=== PATIENT | female | born 1985 | race Caucasian/White ===

== ENCOUNTER 2016-08-18 11:52 | Emergency (ER) | payer MEDICAID ==
[~2016-08-18] VITALS: Ht 170.2 cm; Wt 73.0 kg
--- NOTE | 2016-08-18 12:53 | Emergency Room Report ---
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 N Clinical Suspician of Infection? N Mental Status: 1 - Regular (Normal Baseline) Sepsis Risk:Possible Sepsis Risk Have you (or family members/close friends) recently traveled outside the [place]? N If Yes, where/when: Have you had exposure to infectious disease within the past month? N TB? Other? Specify: Acute left sided chest pain today, hx pleurisy (Candy Burt MD) History Medical History General Angina: No HI: No Hypertension? No Hyperlipidemia? No CHF? No COPD? No Asthma? No CVA? No Seizures? No Diabetes? No GB Disease: No Hepatitis? Yes MRSA? No TB? No Cancer? 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 Respiratory denies no symptoms reported Cardiovascular denies no symptoms reported Gastrointestinal denies no symptoms reported Genitourinary denies: no symptoms reported. Musculoskeletal denies other (pain in left rib area ) (JAIR NICOLAS APRN) All Other Systems Reviewed and Negative Respiratory denies no symptoms reported (Candy Burt MD) Physical Exam General Appearance normal appearance Eye Exam - bilateral eye normal exam, bilateral eye PERRL Ear, Nose, Throat normal ENT inspection Neck normal inspection, non-tender Respiratory Status Yes: trachea midline, chest symmetrical. No: respiratory distress. Lung Sounds bilateral: normal breath sounds, lungs clear. Cardiovascular normal exam, regular rate/rhythm, no peripheral edema, no gallop, no JVD, no murmur, no rub, normal peripheral pulses Gastrointestinal normal bowel sounds, normal exam, non tender Back normal inspection (pain in the left rib area) Extremities non-tender, normal range of motion, normal inspection (JAIR NICOLAS APRN) Vital Signs Vital Signs Date Time Temp Pulse Resp B/P Pulse O2 O2 Flow FiO2 Ox Delivery Rate 08/18 1353 98.2 76 20 111/69 98 08/18 1313 20 08/18 1158 98.2 93 20 125/78 98 Patient states that she was driving down the highway and felt a "catch" in her left rib area denies injury, cough, fever, or feeling ill. States that pain is worse when she moves and feels better when she lays down and rests. States that she is a frequent smoker for last 3 years. States that pain feels like a muscle spasm in the area (JAIR NICOLAS APRN) Neurologic alert, normal exam Skin intact (Javed JOSÉ, Candy Longoria) Medical Decision Making LABS/Meds/Orders Pt receiving controlled substance in ED? No (on Suboxone) Jose was queried for this patient? No Results/Orders Current Medication Orders Sig/Louie Start time Last Medication Dose Route Stop Time Status Admin Ketorolac 0 .STK-MED ONE 08/18 1311 DC Tromethamine .ROUTE Ketorolac 60 MG ONCE ONE 08/18 1300 DC 08/18 Tromethamine IM 08/18 1301 1313 Orders Procedure Date/time Status CHEST(2 VIEWS-NOT PORTABLE) 08/18 1210 Active XRAY/CT/US XRAY/CT/US XRAY chest XR interpretation by reviewed by me, discussed w/radiologist (neg PTX) (Javed JOSÉ, Candy Longoria) Departure Departure Condition STABLE Referrals Ruby KUMAR,Yvette Leary (Family) Prescriptions Current Visit Scripts NAPROXEN (NAPROXEN 500MG TAB) 500 MG PO BIDP PRN pleurisy #20 TAB ED Critical Care Critical Care No (JAIR NICOLAS APRN) Departure Time of Disposition 1334 Disposition DC Home or Self Care(routine) Clinical Impression Primary Impression: PLEURISY Patient Instructions Pleurisy Additional Instructions Naproxen is not a narcotic. Take it or over the counter Ibuprofen, follow up with your family doctor in one to four days. Try moist heat. Discharge Counseling Counseled pt/family regarding diagnosis, test results, medications/RX, home care, follow up needs ED Critical Care Critical Care No (Candy Burt MD) at [phone] at [phone]
--- NOTE | 2016-08-18 12:53 | Emergency Room Report ---
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 N Clinical Suspician of Infection? N Mental Status: 1 - Regular (Normal Baseline) Sepsis Risk:Possible Sepsis Risk Have you (or family members/close friends) recently traveled outside the [place]? N If Yes, where/when: Have you had exposure to infectious disease within the past month? N TB? Other? Specify: Acute left sided chest pain today, hx pleurisy (Candy Burt MD) History Medical History General Angina: No NC: No Hypertension? No Hyperlipidemia? No CHF? No COPD? No Asthma? No CVA? No Seizures? No Diabetes? No GB Disease: No Hepatitis? Yes MRSA? No TB? No Cancer? 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 Respiratory denies no symptoms reported Cardiovascular denies no symptoms reported Gastrointestinal denies no symptoms reported Genitourinary denies: no symptoms reported. Musculoskeletal denies other (pain in left rib area ) (JAIR NICOLAS APRN) All Other Systems Reviewed and Negative Respiratory denies no symptoms reported (Candy Burt MD) Physical Exam General Appearance normal appearance Eye Exam - bilateral eye normal exam, bilateral eye PERRL Ear, Nose, Throat normal ENT inspection Neck normal inspection, non-tender Respiratory Status Yes: trachea midline, chest symmetrical. No: respiratory distress. Lung Sounds bilateral: normal breath sounds, lungs clear. Cardiovascular normal exam, regular rate/rhythm, no peripheral edema, no gallop, no JVD, no murmur, no rub, normal peripheral pulses Gastrointestinal normal bowel sounds, normal exam, non tender Back normal inspection (pain in the left rib area) Extremities non-tender, normal range of motion, normal inspection (JAIR NICOLAS APRN) Vital Signs Vital Signs Date Time Temp Pulse Resp B/P Pulse O2 O2 Flow FiO2 Ox Delivery Rate 08/18 1353 98.2 76 20 111/69 98 08/18 1313 20 08/18 1158 98.2 93 20 125/78 98 Patient states that she was driving down the highway and felt a "catch" in her left rib area denies injury, cough, fever, or feeling ill. States that pain is worse when she moves and feels better when she lays down and rests. States that she is a frequent smoker for last 3 years. States that pain feels like a muscle spasm in the area (JAIR NICOLAS APRN) Neurologic alert, normal exam Skin intact (Javed JOSÉ, Candy Longoria) Medical Decision Making LABS/Meds/Orders Pt receiving controlled substance in ED? No (on Suboxone) Jose was queried for this patient? No Results/Orders Current Medication Orders Sig/Louie Start time Last Medication Dose Route Stop Time Status Admin Ketorolac 0 .STK-MED ONE 08/18 1311 DC Tromethamine .ROUTE Ketorolac 60 MG ONCE ONE 08/18 1300 DC 08/18 Tromethamine IM 08/18 1301 1313 Orders Procedure Date/time Status CHEST(2 VIEWS-NOT PORTABLE) 08/18 1210 Active XRAY/CT/US XRAY/CT/US XRAY chest XR interpretation by reviewed by me, discussed w/radiologist (neg PTX) (Javed JOSÉ, Candy Longoria) Departure Departure Condition STABLE Referrals Ruby KUMAR,Yvette Leary (Family) Prescriptions Current Visit Scripts NAPROXEN (NAPROXEN 500MG TAB) 500 MG PO BIDP PRN pleurisy #20 TAB ED Critical Care Critical Care No (JAIR NICOLAS APRN) Departure Time of Disposition 1334 Disposition DC Home or Self Care(routine) Clinical Impression Primary Impression: PLEURISY Patient Instructions Pleurisy Additional Instructions Naproxen is not a narcotic. Take it or over the counter Ibuprofen, follow up with your family doctor in one to four days. Try moist heat. Discharge Counseling Counseled pt/family regarding diagnosis, test results, medications/RX, home care, follow up needs ED Critical Care Critical Care No (Candy Burt MD) at [phone] at [phone]
[2016-08-18] MEDS ORDERED: NAPROXEN SODIU500 MG PO (13:36)
--- NOTE | 2016-08-18 13:44 | RADIOLOGY REPORT PS360 ---
CHEST(2 VIEWS-NOT PORTABLE) HISTORY: Pleuritic chest pain on the left L RIB PAIN ORDERING PHYSICIAN: JAIR NICOLAS APRN PATIENT AGE: 31 years COMPARISON: None available FINDINGS: The cardiomediastinal silhouette and pulmonary vascularity are within normal limits. The lungs are clear without infiltrates, suspicious nodules, or pleural effusions. No acute bony abnormalities. IMPRESSION: Negative chest, no acute finding
[2016-08-18 13:53] VITALS: BP 111/69
[2016-09-19] MEDS ORDERED: STOOL SOFTENER250 M1 PO (22:48)
[2016-09-19] MEDS ORDERED: MAGNESIUM CITRA1 BOT PO (22:49)
[2016-09-19] MEDS ORDERED: GABAPENTIN 600600 MG PO (22:50)
[2016-09-19] MEDS ORDERED: SUBOXONE 8 MG-21 FIL SL (22:50)
[2016-09-20] MEDS ORDERED: GOLYTELY 40004000 ML PO (01:01)
== END 2016-08-18 13:54 | disposition home or self-care (01) ==
LOC: ER 11:52
DX: R09.1 Pleurisy (principal); Z72.0 Tobacco use

== ENCOUNTER → 2017-06-07 | Outpatient (CLI) | payer MEDICAID ==
[~2017-06-07] MED LIST: GABAPENTIN 600600 MG PO; GOLYTELY 40004000 ML PO; MAGNESIUM CITRA1 BOT PO; NAPROXEN SODIU500 MG PO; STOOL SOFTENER250 M1 PO; SUBOXONE 8 MG-21 FIL SL
--- NOTE | 2017-06-08 15:33 | RADIOLOGY REPORT PS360 ---
PROCEDURE: 2-D M-mode and color Doppler study INDICATIONS FOR THE TEST: Chest pain COPD Heart Murmur Tobacco Smoking PalpitationsX Fatigue Syncope Edema Hypertension Diabetes Mellitus Rheumatic Fever SOB MANCILLA Obesity Hyperlipidemia Family History HD Additional History ABN EKG H/O DRUG ABUSE PATIENT INFORMATION HEIGHT: 67 WEIGHT:192 GENDER: Female B/P:110/70 2-D/M-MODE INTERPRETATION: 2-D MEASUREMENTS OBSERVED VALUES IN CMS Right Ventricular Dimension (RVDd) 2.0 Interventricular Septum (Thickness)(IVsd) 1.1 Left Ventricular Internal Dimensions(LVIDd) 4.7 Left Ventricular Posterior Wall (Thickness)(LVPW 1.1 Aortic Root 2.5 Aortic Cusp Separation 2.1 Left Atrial Dimensions (LAD) 3.2 2D 1. Left atrium is normal size, left ventricle is normal size, there is no concentric left ventricular hypertrophy, visually estimated ejection fraction of 55% with no obvious regional wall motion abnormality. 2. The right atrium and right ventricle are normal size and contractility. 3. The aortic valve is minimally thickened and fibrosed. 4. The mitral and tricuspid valve leaflets are minimally thickened. 5. The pulmonic valve is poorly visualized 6. No significant pericardial effusion noted DOPPLER INTERROGATION: Doppler interrogation of the aortic mitral and tricuspid valvular presence of trace mitral and tricuspid regurgitation, tricuspid regurgitant jet velocity is insufficient for calculation of the right ventricular systolic pressure, diastolic parameters are within normal range. CONCLUSION: 1. Normal left ventricular size, preserved left ventricular systolic function, visually estimated ejection fraction 55% with no obvious regional wall motion abnormality, diastolic parameters are within normal range. 2. Trace mitral and tricuspid regurgitation. 3. No significant pericardial effusion noted.
== END ==
LOC: RT 08:00
DX: R00.2 Palpitations (principal); R94.31 Abnormal electrocardiogram [ECG] [EKG]; R06.09 Other forms of dyspnea; Z87.898 Personal history of other specified conditions

== ENCOUNTER 2017-06-26 22:32 | Emergency (ER) | payer MEDICAID ==
[~2017-06-26] VITALS: Ht 170.2 cm; Wt 86.2 kg
[2017-06-26] MEDS ORDERED: PROPRANOLOL HCL20 MG PO (22:43)
--- OUTSIDE RECORDS SUMMARY | 2017-06-26 22:47 | External Medical Summary Rpt | CCD ---
Author Author , ADRY RIDER Address Unknown Phone [email or web address] Immunization Name Date Rout CVX Reac Dose Comm Prov Is Faci e tion ent ider Refu lity Give sed n Infl 09-2 140 0.5 Hist 1005 No 1005 uenz 7-20 mL oric 38 38 a, 14 al P-Fr Info ee rmat ion - Sour ce Unsp ecif ied Td 10-0 9 999 Hist H109 No H109 (wally 9-20 oric lt), 00 al Info adso rmat rbed ion - Sour ce Unsp ecif ied Hep 09-3 8 999 Hist H109 No H109 B, 0-19 oric ped/ 96 al adol Info rmat ion - Sour ce Unsp ecif ied MMR 08-1 3 999 Hist H109 No H109 6-19 oric 96 al Info rmat ion - Sour ce Unsp ecif ied Hep 08-1 42 999 Hist H109 No H109 B, 6-19 oric adol 96 al Info High rmat Ris ion - Sour ce Unsp ecif ied
--- OUTSIDE RECORDS SUMMARY | 2017-06-26 22:47 | External Medical Summary Rpt | CCD ---
Author Author [employer] Address Unknown Phone Unavailable Purpose Continuity of Care Document - through 2016
--- OUTSIDE RECORDS SUMMARY | 2017-06-26 22:47 | External Medical Summary Rpt ---
Author Author [employer], [employer] Organization [employer] Address Unknown Phone Unavailable Results Magnesium [Moles/volume] in Unspecified specimen Observa Value Referen Units Interpr Notes Date tion ce etation Range Magnesium 1.4 - 2.2 mg/dL Normal No May 21 informati 2016 7:45 [Moles/vo on in PM lume] in source Unspecifi data ed specimen THYROID PANEL 2 Observa Value Referen Units Interpr Notes Date tion ce etation Range Thyroxine 5.93 - ug/dl Normal No May 21 (T4) 13.13 informati 2016 7:45 free on in PM index in source Serum or data Plasma Triiodoth 31 - 39 % Low No May 21 yronine informati 2016 7:45 (T3) on in PM resin source uptake in data Serum or Plasma Thyroxine 4.7 - ug/dl High No May 21 (T4) 13.3 informati 2016 7:45 [Mass/vol on in PM ume] in source Serum or data Plasma Thyrotrop 0.358 - uIU/ml No No May 21 in 3.740 informati informati 2016 7:45 [Units/vo on in on in PM lume] in source source Serum or data data Plasma Choriogonadotropin [Units/volume] in Serum or Plasma Observa Value Referen Units Interpr Notes Date tion ce etation Range Choriogon NEG No No No May 21 adotropin informati informati informati 2016 7:45 on in on in on in PM [Units/vo source source source lume] in data data data Serum or Plasma CBC W Auto Differential panel in Blood Observa Value Referen Units Interpr Notes Date tion ce etation Range Basophils 0 - 0.2 K/MM3 Normal No May 21 informati 2016 7:45 [#/volume on in PM ] in source Blood by data Automated count Basophils 0.1 - 2.0 % Normal No May 21 /100 informati 2016 7:45 leukocyte on in PM s in source Blood by data Automated count Eosinophi 0.0 - 0.4 K/mm3 Normal No May 21 ls informati 2016 7:45 [#/volume on in PM ] in source Blood by data Automated count Eosinophi 0.1 - % Normal No May 21 ls/100 12.0 informati 2016 7:45 leukocyte on in PM s in source Blood by data Automated count Granulocy 1.8 - 7.8 K/mm3 Normal No May 21 blanche informati 2016 7:45 [#/volume on in PM ] in source Blood by data Automated count Granulocy 37.0 - % Normal No May 21 blanche/100 80.0 informati 2016 7:45 leukocyte on in PM s in source Blood by data Automated count Hematocri 37.0 - % Normal No May 21 t [Volume 47.0 informati 2016 7:45 on in PM Fraction] source of Blood data Hemoglobi 12.2 - g/dL Normal No May 21 n 16.2 informati 2016 7:45 [Mass/vol on in PM ume] in source Blood data Lymphocyt 0.7 - 4.5 K/mm3 High No May 21 es informati 2016 7:45 [#/volume on in PM ] in source Unspecifi data ed specimen by Automated count Lymphocyt 10 - 50.0 % Normal No May 21 es informati 2016 7:45 [#/volume on in PM ] in source Unspecifi data ed specimen by Automated count Erythrocy 27 - 31.2 pg Normal No May 21 te mean informati 2016 7:45 corpuscul on in PM ar source hemoglobi data n [Entitic mass] Erythrocy 31.8 - g/dl Normal No May 21 te mean 35.4 informati 2016 7:45 corpuscul on in PM ar source hemoglobi data n concentra tion [Mass/vol ume] by Automated count Erythrocy 82.2 - fl Normal No May 21 te mean 97.8 informati 2016 7:45 corpuscul on in PM ar volume source [Entitic data volume] by Automated count Monocytes 0.1 - 1.0 K/mm3 Normal No May 21 informati 2016 7:45 [#/volume on in PM ] in source Blood by data Automated count Monocytes 1.7 - 9.3 % Normal No May 21 /100 informati 2016 7:45 leukocyte on in PM s in source Blood by data Automated count Platelet 7.4 - fl Low No May 21 mean 10.4 informati 2016 7:45 volume on in PM [Entitic source volume] data in Blood by Automated count Platelets 142 - 424 K/mm3 Normal No May 21 informati 2016 7:45 [#/volume on in PM ] in source Blood data Erythrocy 4.2 - 5.4 M/mm3 Normal No May 21 blanche informati 2016 7:45 [#/volume on in PM ] in source Amniotic data fluid Erythrocy 11.5 - % Normal No May 21 te 17.5 informati 2016 7:45 distribut on in PM ion width source [Entitic data volume] by Automated count Leukocyte 4.8 - K/MM3 Normal No May 21 s 10.8 informati 2016 7:45 [#/volume on in PM ] in source Blood data Reagin Ab [Presence] in Unspecified specimen by VDRL Observa Value Referen Units Interpr Notes Date tion ce etation Range COLLECT C3819 No No No No Sep 20 OR informa informa informa informa 2011 tion in tion in tion in tion in 3:09 PM source source source source data data data data ETHNICI WHITE No No No No Sep 20 TY informa informa informa informa 2011 tion in tion in tion in tion in 3:09 PM source source source source data data data data PURPOSE DIAGNOS No No No No Sep 20 OF TIC informa informa informa informa 2011 EXAM tion in tion in tion in tion in 3:09 PM source source source source data data data data SPECIME BLOOD No No No No Sep 20 N informa informa informa informa 2011 SOURCE tion in tion in tion in tion in 3:09 PM source source source source data data data data CHART N/A No No No No Sep 20 NUMBER informa informa informa informa 2011 tion in tion in tion in tion in 3:09 PM source source source source data data data data Reagin NON-JUAN CARLOS No No No METHOD Sep 20 [address]IVE informa informa informa OF 2010 [Presen tion in tion in tion in ANALYSI 3:09 PM ce] in source source source S: Unspeci data data data VDRLNOR fied MAL specime RANGE: n by NON VDRL REACTIV E\.br\T his report contain s patient informa tion that must be protect ed in accorda nce with the Health Insuran ce [place] and Account ability Act. CHLAMYDIA AND GONORRHEA TESTING Observa Value Referen Units Interpr Notes Date tion ce etation Range COLLECT [id number] No No No No Sep 20 OR informa informa informa informa 2011 tion in tion in tion in tion in 2:46 PM source source source source data data data data ETHNICI WHITE, No No No No Sep 20 TY NON-HIS informa informa informa informa 2011 PANIC tion in tion in tion in tion in 2:46 PM source source source source data data data data KIT No No No No Sep 20 EXPIRAT 011 informa informa informa informa 2011 ION tion in tion in tion in tion in 2:46 PM DATE source source source source data data data data SYMPTOM YES No No No No Sep 20 S informa informa informa informa 2011 tion in tion in tion in tion in 2:46 PM source source source source data data data data REASON VOLUNTE No No No No Sep 20 FOR ER/MEDI informa informa informa informa 2011 REQUEST BRIDGETTE tion in tion in tion in tion in 2:46 PM PROBLEM source source source source data data data data SPECIME FEMALE No No No No Sep 20 N ENDOCER informa informa informa informa 2011 SOURCE VICAL tion in tion in tion in tion in 2:46 PM source source source source data data data data PREGNAN NO No No No No Sep 20 T informa informa informa informa 2011 tion in tion in tion in tion in 2:46 PM source source source source data data data data CHART N/A No No No No Sep 20 NUMBER informa informa informa informa 2011 tion in tion in tion in tion in 2:46 PM source source source source data data data data Chlamyd NEGATIV No No No NEGATIV Sep 20 ia E informa informa informa E 2011 trachom tion in tion in tion in RESULT= 2:46 PM atis source source source WITHIN rRNA data data data NORMAL [Presen ce] in LIMITSP Unspeci OSITIVE fied specime RESULT= n by Probe & ABNORMA target LEQUIVO BRIDGETTE amplifi RESULT= cation method INDETER MINATEU NSATISF ACTORY RESULT= INVALID Neisser NEGATIV No No No NEGATIV Sep 20 ia E informa informa informa E 2010 gonorrh tion in tion in tion in RESULT= 2:46 PM oeae source source source WITHIN rRNA data data data NORMAL [Presen ce] in LIMITSP Unspeci OSITIVE fied specime RESULT= n by Probe & ABNORMA target LEQUIVO BRIDGETTE amplifi RESULT= cation method INDETER MINATEU NSATISF ACTORY RESULT= INVALID EFFECTI VE NOVEMBE R 2009: THE APTIMA COMBO 2 NUCLEIC ACIDAMP LIFICAT ION ASSAY IS NOT INTENDE D FOR THE EVALUAT ION OFSUSPE CTED SEXUAL ABUSE OR FOR OTHER MEDICO- LEGAL INDICAT IONS.FA LSE POSITIV E RESULTS ARE POSSIBL E.\.br\ This report contain s patient informa tion that must be protect ed in accorda nce with the Health Insuran ce [employer] l[employer] and Account ability Act.
--- OUTSIDE RECORDS SUMMARY | 2017-06-26 22:47 | External Medical Summary Rpt | CCD ---
Author Author , ADRY RIDER Address Unknown Phone [email or web address] Immunization Name Date Rout CVX Reac Dose [...]
--- OUTSIDE RECORDS SUMMARY | 2017-06-26 22:47 | External Medical Summary Rpt | CCD ---
Author Author , ADRY RIDER Address Unknown Phone [email or web address] Purpose Continuity of Care Document - 04-12-2011 through 2016 Problems Code Diagnosis DOS Provider Status F11.20 OPIOID 02-14-2017 DEPENDENCE, UNCOMPLICAT ED Z11.4 ENCOUNTER 02-14-2017 FOR SCREENING FOR HUMAN IMMUNODEFIC IENCY VIRUS [HIV] E87.6 HYPOKALEMIA K59.03 DRUG INDUCED CONSTIPATIO N R00.2 PALPITATION S Results Labs Lab Lab Date Result Refere Interp Status Commen Order Detail nces retati t Range on Comprehensive metabolic panel (05-21-2017 19:45) Protein = 8.9 6.4-8.2 complet total 017 gm/dL ed ser/jhony 19:45 s ALT = 60 12-78 complet (SGPT) 017 U/L ed ser/jhony 19:45 s Serum = 35 15-37 complet or 017 U/L ed plasma 19:45 asparta te aminotr ansfera Serum = 139 136-145 complet sodium 017 mmoL/L ed measure 19:45 ment Serum = 3.3 3.5-5.1 complet potassi 017 mmoL/L ed um 19:45 measure ment Serum = 113 74-106 complet or 017 mg/dL ed plasma 19:45 glucose measure ment (mas Serum = 4.5 1.3-3.2 complet globuli 017 gm/dL ed n 19:45 measure ment (mass/v olume) Estimat = 64 59- complet ed 017 ML/MIN ed glomeru 19:45 lar filtrat ion rate (GF Comment: REFERENCE RANGE: >60 ML/MIN/1.73 SQUARE METERS Comment: If this patient is -Welsh, then multiply the Comment: result by 1.210. Estimat = 109 50-200 complet ion of 017 ML/MIN ed creatin 19:45 ine renal clearan ce Serum = 1.0 0.55-1. complet or 017 mg/dL 02 ed plasma 19:45 creatin ine measure ment ( Carbon = 28 21.0-32 complet dioxide 017 mmoL/L .0 ed 19:45 measure ment Serum = 102 98-107 complet or 017 mmoL/L ed plasma 19:45 chlorid e measure ment (mo Serum = 9.4 8.5-10. complet or 017 mg/dL 1 ed plasma 19:45 calcium measure ment (mas Serum = 14 7-18 complet or 017 mg/dL ed plasma 19:45 urea nitroge n measure men Serum = 0.7 0.2-1.0 complet or 017 mg/dL ed plasma 19:45 total bilirub in measure m Serum = 123 46-116 complet or 017 U/L ed plasma 19:45 alkalin e phospha tase zhang Serum = 4.4 3.4-5.0 complet or 017 gm/dL ed plasma 19:45 albumin measure ment (mas Serum = 1.0 1.1-1.8 complet or 017 ed plasma 19:45 albumin /globul in mass ra Cardiac enzymes (05-21-2017 19:45) Serum < 0.02 0.00-0. complet or 017 ng/mL 06 ed plasma 19:45 troponi n i.cardi ac measu Serum = 115 26-192 complet or 017 U/L ed plasma 19:45 creatin e kinase measure m Serum < 0.5 0.0-3.6 complet or 017 ng/mL ed plasma 19:45 creatin e kinase MB measu Serum = 0.4 0-4.0 complet or 017 U/L ed plasma 19:45 creatin e kinase MB (CK-M THYROID PANEL 2 (05-21-2017 19:45) Serum = 1.85 0.358-3 complet or 017 uIU/ml .740 ed plasma 19:45 thyroid stimula ting horm Thyroxi 10-29-2 = 17.5 4.7-13. complet ne 017 ug/dl 3 ed 19:45 T3 = 25 % 31-39 complet uptake 017 ed 19:45 Serum = 10.9 5.93-13 complet or 017 ug/dl .13 ed plasma 19:45 thyroxi ne (T4) free inde Magnesium measurement (05-21-2017 19:45) Magnesi = 1.9 1.4-2.2 complet um 017 mg/dL ed measure 19:45 ment CBC w auto diff (05-21-2017 19:45) Mean = 29.9 27-31.2 complet corpusc 017 pg ed ular 19:45 hemoglo bin (MCH) determ Lymphoc = 43.5 10-50.0 complet yte 017 % ed count, 19:45 blood, automat ed Absolut = 4.6 0.7-4.5 complet e 017 K/mm3 ed lymphoc 19:45 yte count Blood = 14.4 12.2-16 complet hemoglo 017 g/dL .2 ed bin 19:45 measure ment (mass/v olum Blood = 42.2 37.0-47 complet hematoc 017 % .0 ed rit 19:45 (volume fractio n) Granulo = 51.5 37.0-80 complet cyte 017 % .0 ed percent 19:45 age Automat = 0.0 0-0.2 complet ed 017 K/MM3 ed blood 19:45 basophi l count (count/ vo Blood = 5.4 1.8-7.8 complet granulo 017 K/mm3 ed cytes 19:45 automat ed count (numb Automat = 1.1 % 0.1-12. complet ed 017 0 ed blood 19:45 eosinop hils/10 0 leukocy t Automat = 0.1 0.0-0.4 complet ed 017 K/mm3 ed blood 19:45 eosinop hil count Baso % = 0.3 % 0.1-2.0 complet 017 ed 19:45 Blood = 10.5 4.8-10. complet leukocy 017 K/MM3 8 ed blanche 19:45 count (number /volume ) Automat = 12.7 11.5-17 complet ed 017 % .5 ed erythro 19:45 cyte distrib ution width Red = 4.81 4.2-5.4 complet blood 017 M/mm3 ed cell 19:45 count Blood = 400 142-424 complet platele 017 K/mm3 ed t count 19:45 Automat = 7.0 7.4-10. complet ed 017 fl 4 ed blood 19:45 platele t mean volume zhang Mcminn % = 3.6 % 1.7-9.3 complet 017 ed 19:45 Absolut = 0.4 0.1-1.0 complet e 017 K/mm3 ed monocyt 19:45 e count Automat = 87.6 82.2-97 complet ed 017 fl .8 ed erythro 19:45 cyte mean corpusc ular v Automat = 34.2 31.8-35 complet ed 017 g/dl .4 ed erythro 19:45 cyte mean corpusc ular h Serum test (05-21-2017 19:45) Serum = NEG complet pregnan 017 NEGATIV ed cy test 19:45 E Reagin Ab [Presence] in Unspecified specimen by VDRL (04-12-2011 15:09) COLLECT [id number] complet OR 011 ed 15:09 ETHNICI WHITE complet TY 011 ed 15:09 PURPOSE DIAGNOS complet OF 011 TIC ed EXAM 15:09 SPECIME BLOOD complet N 011 ed SOURCE 15:09 CHART N/A complet NUMBER 011 ed 15:09 Reagin NON-JUAN CARLOS complet Ab 011 CTIVE ed [Presen 15:09 ce] in Unspeci fied specime n by VDRL CHLAMYDIA AND GONORRHEA TESTING (04-12-2011 14:46) COLLECT [id number] complet OR 011 ed 14:46 ETHNICI WHITE, complet TY 011 NON-HIS ed 14:46 PANIC KIT complet EXPIRAT 011 011 ed ION 14:46 DATE SYMPTOM YES complet S 011 ed 14:46 REASON VOLUNTE complet FOR 011 ER/MEDI ed REQUEST 14:46 BRIDGETTE PROBLEM SPECIME FEMALE complet N 011 ENDOCER ed SOURCE 14:46 VICAL PREGNAN NO complet T 011 ed 14:46 CHART N/A complet NUMBER 011 ed 14:46 Chlamyd NEGATIV complet ia 011 E ed trachom 14:46 atis rRNA [Presen ce] in Unspeci fied specime n by Probe & target amplifi cation method Neisser NEGATIV complet ia 011 E ed gonorrh 14:46 oeae rRNA [Presen ce] in Unspeci fied specime n by Probe & target amplifi cation method
--- OUTSIDE RECORDS SUMMARY | 2017-06-26 22:47 | External Medical Summary Rpt | CCD ---
Author Author , ADRY RIDER Address Unknown Phone [email or web address] Purpose Continuity of Care Document - 04-12-2011 [...] SQUARE METERS Comment: If this patient is -[place], then multiply the Comment: result by 1.210. [...] blood 19:45 platele t mean volume zhang Schleicher % = 3.6 % 1.7-9.3 complet 017 [...]
[2017-06-26 23:54] LABS: LYMPH # 2.6 K/mm3 (0.7-4.5); LYMPH % 19.7 % (10-50.0)
[2017-06-27 00:04] LABS: HEMOGLOBIN 12.6 g/dL (12.2-16.2)
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
[2017-06-27 01:22] LABS: URINE BILIRUBIN - DIPSTICK NEGATIVE (NEG); URINE BLOOD 3+ (NEG)
[2017-06-27 01:37] LABS: AMPHETAMINES/METAMPHETAMINES POSITIVE ng/mL (<1000)
--- NOTE | 2017-06-27 06:29 | RADIOLOGY REPORT PS360 ---
CT HEAD W/O CONTRAST HISTORY: Altered mental status, altered level consciousness, confusion, memory loss AMS ORDERING PHYSICIAN: Shana Campos MD PATIENT AGE: 32 years COMPARISON: None TECHNIQUE: Axial images obtained without contrast. Brain and bone windows reviewed. FINDINGS: There is motion artifact radiating image quality in the most inferior aspect of the middle cranial and posterior cranial fossa is not included on the exam. No midline shift, mass effect, intracranial hemorrhage, hydrocephalus, or extra-axial fluid collection is evident. The calvarium has an unremarkable appearance. No mastoid effusion. Mucosal thickening left sphenoid sinus.. IMPRESSION: 1. Image degradation artifact. 2. No acute finding demonstrated.
[2017-06-27 09:25] VITALS: BP 100/55
== END 2017-06-27 09:25 | disposition home or self-care (01) ==
LOC: ER 22:32
PROVIDERS: Emergency Medicine
DX: F14.10 Cocaine abuse, uncomplicated (principal); S80.812A Abrasion, left lower leg, initial encounter; S80.811A Abrasion, right lower leg, initial encounter; S50.812A Abrasion of left forearm, initial encounter; S50.811A Abrasion of right forearm, initial encounter